=== PATIENT | female | born 1960 | race African-American/Black ===

== ENCOUNTER → 2021-10-07 | Outpatient (CLI) | payer BC ==
[2021-10-07 13:02] LABS: BASO % 0.7 % (0.0-1.0); EOS # 0.1 10*3/uL (0.0-0.4); EOS % 2.9 % (1.0-4.0); HEMATOCRIT 41.3 % (37.0-47.0); LYMPH # 1.3 10*3/uL (1.3-4.4); LYMPH % 27.6 % (27.0-41.0); MEAN CELL VOLUME 95.8 fl (81.0-99.0); MEAN CORPUSCULAR HGB 30.9 pg (27.0-31.0); MEAN CORPUSCULAR HGB CONC 32.2 g/dl (33.0-37.0); MEAN PLATELET VOLUME 10.6 fl (9.6-12.3); MONO # 0.4 10*3/uL (0.1-1.0); MONO % 9.2 % (3.0-9.0); NEUT # 2.7 10*3/uL (2.3-7.9); NEUT % 59.4 % (47.0-73.0); PLATELET COUNT AUTOMATED 280 10*3/uL (130-400); RED BLOOD COUNT 4.31 10*6/uL (4.10-5.10); WHITE BLOOD COUNT 4.6 10*3/uL (4.8-10.8)
[2021-10-08 08:08] LABS: HEP B CORE AB, IGM Negative (Negative); HEPATITIS B SURFACE AG Negative (Negative); HEPATITIS C VIRUS ANTIBODY <0.1 s/co (0.0-0.9); RHEUMATOID ARTHRITIS FACTOR 11.1 IU/mL (<14.0)
[2021-10-08 15:07] LABS: ANTI-RNP ANTIBODIES <0.2 AI (0.0-0.9)
[2021-10-09 00:05] LABS: CCP ANTIBODIES IGG/IGA 7 units (0-19)
[2021-10-09 13:06] LABS: LUPUS DRVVT 33.5 sec (0.0-47.0); LUPUS REFLEX INTERPRETATION Comment: (.); PTT-LA 30.2 sec (0.0-51.9)
[2021-10-15 18:06] LABS: HLA-B27 ANTIGEN Negative (.)
== END | disposition home or self-care (01) ==
LOC: LAB 12:10
PROVIDERS: ATTEND Orthopaedic Surgery
DX: M25.559 Pain in unspecified hip (principal)